=== PATIENT | female | born 1945 | race Caucasian/White ===

== ENCOUNTER 2018-09-19 11:29 | Outpatient (CLI) | payer OTHER ==
[~2018-09-19 11:29] MED LIST: GLIPIZIDE; LISINOPRIL; METFORMIN
== END 2018-09-19 13:29 | disposition home or self-care (01) ==
LOC: SRD 11:29
PROVIDERS: ATTEND Family Medicine
DX: M77.32 Calcaneal spur, left foot (principal); M77.31 Calcaneal spur, right foot